=== PATIENT | female | born 1990 | race Two or more races ===

== ENCOUNTER → 2018-06-20 | Outpatient (CLI) | payer OTHER ==
[2018-06-21 05:10] LABS: FSH 6.6 mIU/mL (.); PROLACTIN 4.8 ng/mL (4.8-23.3)
[2018-06-21 15:09] LABS: LUTEINIZING HORMONE 19.2 mIU/mL (.)
[2018-06-23 10:10] LABS: TESTOSTERONE TOTAL 41 ng/dL (8-48)
== END | disposition home or self-care (01) ==
LOC: LAB 15:51
DX: N92.6 Irregular menstruation, unspecified (principal)
CPT/HCPCS: 82670; 83001; 83002; 84146; 84443

== ENCOUNTER → 2018-06-27 | Outpatient (CLI) | payer OTHER | END | disposition home or self-care (01) | LOC: LAB 14:19 | DX: N92.6 Irregular menstruation, unspecified (principal) | CPT/HCPCS: 36415; 83036; 83525 ==